=== PATIENT | female | born 1965 | race Caucasian/White ===

== ENCOUNTER 2018-07-20 15:15 | Emergency (ER) | payer OTHER ==
[~2018-07-20] VITALS: Ht 175.3 cm; Wt 69.1 kg
[2018-07-20 15:33] VITALS: BP 116/75
[2018-07-20] MEDS ORDERED: dexamethasone sod phosphate 10mg/ml inj IV STA (16:17)
[2018-07-20] MEDS ORDERED: normal saline 1000ML IV soln IVB ONE (16:20)
[2018-07-20] MEDS ORDERED: LORazepam 2 mg/ml vial IV ONE (16:20)
[2018-07-20] MEDS ORDERED: metoclopramide 5 mg/ml inj IV ONE (16:20)
[2018-07-20] MEDS ORDERED: ketorolac trometh. 30mg/ml inj. IV ONE (17:15)
[2018-07-20] MEDS ORDERED: ONDA4TAB6 PO (17:23)
== END 2018-07-20 18:13 | disposition home or self-care (01) ==
LOC: ER 15:15
DX: G43.909 Migraine, unspecified, not intractable, without status migrainosus (principal); Z88.2 Allergy status to sulfonamides; Z88.5 Allergy status to narcotic agent; Z88.8 Allergy status to other drugs, medicaments and biological substances
CPT/HCPCS: 70450; 96374; 96375; 99284; J1100; J1885; J2060; J2765; J7030